=== PATIENT | female | born 1995 | race Hispanic/Latino ===

== ENCOUNTER 2019-07-02 17:36 | Inpatient (IN) | payer BC ==
[2019-07-02] MEDS ORDERED: hydrALAZINE 20 MG/ML VIAL SLOW IVP PRN ×2 (17:48→19:24)
[2019-07-02 18:11] LABS: #Lymphocytes 2.1 thou/uL (1.20-3.40); #Monocytes 0.5 thou/uL (0.11-0.59); #Neutrophils 8.7 thou/uL (1.40-6.50); %Basophils 0.4 % (0.0-1.0); %Eosinophils 0.2 % (0.0-10.0); %Lymphocytes 18.2 % (21.0-51.0); %Monocytes 4.4 % (0.0-10.0); %Neutrophils 76.8 % (42.0-75.0); Hemoglobin 11.7 g/dL (12.0-16.0); Mean Corpuscular HGB CONC 33.4 g/dL (32.0-36.0); Mean Corpuscular Hemoglobin 27.1 pg (27.0-31.0); Mean Platelet Volume 8.7 fL (7.4-10.4); Platelet Count 159 thou/uL (130-400); RBC Distribution Width 13.7 % (11.5-14.5); Red Blood Cell (RBC) Count 4.31 mill/uL (4.20-5.40); White Blood Cell (WBC) Count 11.4 thou/uL (4.8-10.8)
[2019-07-02] MEDS ORDERED: Labetalol HCl 100 MG/20 ML VIAL SLOW IVP PRN (18:32)
[2019-07-02] MEDS ORDERED: Labetalol HCl 100 MG/20 ML VIAL ONE (18:32)
[2019-07-02 18:34] LABS: ALT (SGPT) 28 U/L (8-55); AST (SGOT) 42 U/L (5-34); Albumin 2.6 g/dL (3.5-5.0); Alkaline Phosphatase 199 U/L (40-110); Anion Gap 10 mmol/L (10-20); BUN (Urea Nitrogen) 11 mg/dL (7.0-18.7); Bilirubin, Total 0.3 mg/dL (0.2-1.2); Calc. Creatinine Clearance 143 mL/min (70-130); Calcium 8.2 mg/dL (7.8-10.44); Carbon Dioxide 25 mmol/L (22-29); Chloride 104 mmol/L (98-107); Estimated GFR-MDRD Greater than 90; Globulin 3.5 g/dL (2.4-3.5); Glucose 87 mg/dL (70-105); Potassium 3.9 mmol/L (3.5-5.1); Protein, Total 6.1 g/dL (6.0-8.3); Sodium 135 mmol/L (136-145)
[2019-07-02] MEDS: Betamet Acet/Betamet Na Ph 30 MG/5 ML VIAL IM SCH (19:00)
[2019-07-02] MEDS: Labetalol HCl 100 MG/20 ML VIAL SLOW IVP PRN ×2 (19:00→21:40)
[2019-07-02] MEDS ORDERED: Betamet Acet/Betamet Na Ph 30 MG/5 ML VIAL ONE (19:01)
[2019-07-02] MEDS ORDERED: Magnesium Sulfate 20 gm/500 ml 20 GM/500 ML BAG ONE (19:02)
[2019-07-02 19:09] LABS: Bacteria/HPF 2+ HPF (None Seen); Bilirubin Negative (Negative); Blood, Urine 1+ (Negative); Clarity Turbid (Clear); Glucose, Urine (Dipstick) Normal (Negative); Leukocyte Negative Leu/uL (Negative); Nitrite Negative (Negative); Protein, Urine (Dipstick) 600 mg/dL (Neg-Trace); RBC/HPF 0-3 HPF (0-3); Urobilinogen Normal mg/dL (Less than 2)
[2019-07-02 19:23] LABS: Creatinine, Urine 145.39 mg/dL (47-110)
[2019-07-02] MEDS ORDERED: Calcium Gluc 4.6 MEQ/10 ML (100 MG/ML) SLOW IVP PRN (19:24)
[2019-07-02] MEDS ORDERED: Ondansetron PF 4 MG/2 ML Vial IVP PRN (19:24)
[2019-07-02] MEDS ORDERED: Butorphanol Tartrate 1 MG/ML VIAL SLOW IVP PRN (19:24)
[2019-07-02] MEDS ORDERED: Promethazine HCl 25 MG/ML VIAL IM PRN (19:24)
[2019-07-02] MEDS ORDERED: Magnesium Sulfate 20 GM/WATER 500 ML BAG IVPB SCH (19:30)
--- NOTE | 2019-07-02 19:31 | PDOC.LDHP ---
Labor and Delivery H&P Chief complaint: other (elevated BP in office) HPI: 23 yo LAF G1 seen in Dr. Siegel's office with BPs to 160+ systolic this PM. Denies DUMAS or visual changes. Current gestational age (weeks): 34 Due date: 08/13/19 Dating criteria: last menstrual period Grav: 1 Para: 0 OB History Details: PNC with Dr. Siegel w/o complications. Current complications: none Abnormal US findings: No Current medications: pre- vitamins Previous surgical history: appendectomy, other (PE tubes) Allergies/Adverse Reactions: Allergies Allergy/AdvReac Type Severity Reaction Status Date / Time No Known Allergies Allergy Verified 07/02/19 18:20 Social history: none - Physical Exam Abnormal vital signs: BPs 160-170s General: NAD Heart: RRR Lungs: CTAB Abdomen: gravid Extremeties: trace edema FHT: category 1 [place] contractions every: none seen - Vaginal Exam cm dilated: 1 Effacement: 50% Station: -1 - Assessment 34 week IUP, r/o severe PIH - Plan Plan: admit to L&D, magnesium for neuroprotection, informed consent obtained, magnesium for seizure prophylaxis, other (Steroids for FLM started. Dr. Siegel aware.)
[2019-07-02] MEDS ORDERED: FLU VACC QS2019-20(6MOS UP)/PF 60 MCG/0.5 ML SYRINGE IM ONE (20:00)
[2019-07-02 20:42] LABS: Syphilis Antibody Nonreactive (Nonreactive); Syphilis Antibody Index 0.05 S/CO (<1.00 Non-Reactive)
[2019-07-02 20:46] LABS: Protein, Urine Random Quant Greater than 2000 mg/dL (1-14)
[2019-07-02] MEDS: Lactated Ringer's 1,000 ML IV SCH (21:05)
[2019-07-02] MEDS: Magnesium Sulfate 20 gm/500 ml 20 GM/500 ML BAG IVPB SCH (21:06)
--- NOTE | 2019-07-02 21:22 | PDOC.EVN ---
Event Note - Event Note Event Note: Labs on admit: WBC= 11.4, H/H= 11.7/34.9, plts= 159K Cr= .69 T. bili= .3, AST/ALT= 42/28 Urine Prot/Cr= 13+ Will start 24 urine for total protein and cont. MgSo4.
[2019-07-02 22:25] LABS: HBSAg Index 0.12 S/CO (0-0.99); Hep B Surf Ag Non-Reactive S/CO (NonReactive)
[2019-07-02] MEDS: hydrALAZINE 20 MG/ML VIAL SLOW IVP PRN (23:08)
[2019-07-03] MEDS: Magnesium Sulfate 20 gm/500 ml 20 GM/500 ML BAG IVPB SCH (02:58)
--- NOTE | 2019-07-03 06:54 | PDOC.EVN ---
Event Note - Event Note Event Note: 34 1/ weeks. Sleeping. Received 3 doses of Labetalol and a single dose of Apresoline late last PM. BPs 140's/90's now. FHTs stable, occasional UCs seen. Mg at 2 gm/hr. Plan; 24 hr urine in progress, cont. MgSo4, second dose of steroids due this PM. Would proceed with delivery if requires more antihypertensive meds.
[2019-07-03] MEDS: Lactated Ringer's 1,000 ML IV SCH ×3 (08:19→21:43)
[2019-07-03 08:55] LABS: #Lymphocytes 1.6 thou/uL (1.20-3.40); #Monocytes 0.2 thou/uL (0.11-0.59); #Neutrophils 13.4 thou/uL (1.40-6.50); %Basophils 0.3 % (0.0-1.0); %Eosinophils 0.2 % (0.0-10.0); %Lymphocytes 10.3 % (21.0-51.0); %Monocytes 1.4 % (0.0-10.0); %Neutrophils 87.8 % (42.0-75.0); Hemoglobin 10.5 g/dL (12.0-16.0); Mean Corpuscular HGB CONC 33.1 g/dL (32.0-36.0); Mean Corpuscular Hemoglobin 26.9 pg (27.0-31.0); Mean Corpuscular Volume 81.4 fL (78.0-98.0); Mean Platelet Volume 9.7 fL (7.4-10.4); Platelet Count 158 thou/uL (130-400); RBC Distribution Width 13.8 % (11.5-14.5); Red Blood Cell (RBC) Count 3.89 mill/uL (4.20-5.40); White Blood Cell (WBC) Count 15.3 thou/uL (4.8-10.8)
[2019-07-03 09:17] LABS: ALT (SGPT) 26 U/L (8-55); AST (SGOT) 32 U/L (5-34); Albumin 2.2 g/dL (3.5-5.0); Alkaline Phosphatase 172 U/L (40-110); Anion Gap 19 mmol/L (10-20); BUN (Urea Nitrogen) 10 mg/dL (7.0-18.7); Bilirubin, Total 0.3 mg/dL (0.2-1.2); Calc. Creatinine Clearance 147 mL/min (70-130); Carbon Dioxide 13 mmol/L (22-29); Chloride 104 mmol/L (98-107); Estimated GFR-MDRD Greater than 90; Globulin 3.2 g/dL (2.4-3.5); Glucose 115 mg/dL (70-105); Magnesium 7.1 mg/dL (1.6-2.6); Potassium 4.1 mmol/L (3.5-5.1); Protein, Total 5.4 g/dL (6.0-8.3); Sodium 132 mmol/L (136-145)
[2019-07-03] MEDS: Betamet Acet/Betamet Na Ph 30 MG/5 ML VIAL IM SCH (19:24)
[2019-07-03 19:59] LABS: Urine Total Volume 1300 mL (600-1600)
[2019-07-03 20:38] LABS: Protein - 24 Hr 10764 mg/24 hr (Less than 300); Protein, Urine 828 mg/dL (1-14)
[2019-07-03] MEDS: Acetaminophen 500 MG TAB PO PRN (22:52)
[2019-07-04] MEDS: Lactated Ringer's 1,000 ML IV SCH (06:12)
--- NOTE | 2019-07-04 07:52 | PDOC.EVN ---
Event Note - Event Note Event Note: S: Doing well, no complaints this morning. O: BPs normal to mild range yesterday and overnight. Gen - AAO, NAD Abd- soft, gravid, NTTP NST: 130s, mod variability, + accels, no decels A/P: 23 y/o G1 at 34 2/7 weeks with preeclampsia with severe features. Received 3 doses of Labetalol and a single dose of Apresoline late PM of 07/02. MgSO4 turned off for now but will be restarted if severe pressures spike again. S/p celestone x 2. Continue to monitor.
[2019-07-04] MEDS: Acetaminophen 500 MG TAB PO PRN (15:17)
[2019-07-05] MEDS: hydrALAZINE 20 MG/ML VIAL SLOW IVP PRN ×2 (01:20→04:55)
[2019-07-05 07:15] LABS: Hemoglobin 10.5 g/dL (12.0-16.0); Mean Corpuscular HGB CONC 33.5 g/dL (32.0-36.0); Mean Corpuscular Volume 80.7 fL (78.0-98.0); Red Blood Cell (RBC) Count 3.87 mill/uL (4.20-5.40)
[2019-07-05 07:32] LABS: ALT (SGPT) 20 U/L (8-55); AST (SGOT) 32 U/L (5-34); Albumin 2.2 g/dL (3.5-5.0); Alkaline Phosphatase 164 U/L (40-110); Anion Gap 11 mmol/L (10-20); BUN (Urea Nitrogen) 23 mg/dL (7.0-18.7); Bilirubin, Total 0.2 mg/dL (0.2-1.2); Calc. Creatinine Clearance 141 mL/min (70-130); Calcium 7.1 mg/dL (7.8-10.44); Carbon Dioxide 21 mmol/L (22-29); Chloride 105 mmol/L (98-107); Estimated GFR-MDRD Greater than 90; Glucose 106 mg/dL (70-105); Protein, Total 5.2 g/dL (6.0-8.3); Sodium 133 mmol/L (136-145)
--- NOTE | 2019-07-05 08:45 | ULT ---
PRELIMINARY REPORT/[facility]/EMERGENCY AFTER HOURS PROCEDURE: PROCEDURE INFORMATION: Exam: US Biophysical Profile Without Non-Stress Test Exam date and time: 07/05/2019 12:34 AM Clinical history: 23 years old, female; Other: Severe pre-eclampsia; TECHNIQUE: Imaging protocol: US biophysical profile without non-stress testing. COMPARISON: No relevant prior studies available. FINDINGS: Other findings: Biophysical profile score is 8/8. position is vertex. Breathin/2 Gross body movements: 2/2 tone: 2/2 Qualitative amniotic fluid: 2/2 Biophysical Profile Score: 8/8 Gestation: Single live intrauterine gestation. Heart rate: heart rate 135 beats per minute. Amniotic fluid: Amniotic fluid volume is normal with an COLEMAN of 7.6 cm. Placenta: Placenta is located maternal left with incidental venous lakes. Umbilical artery Doppler: Umbilical artery SD ratio measured at 3.2. IMPRESSION: 1. Single live intrauterine gestation as above. 2. Umbilical artery SD ratio measured at 3.2. 3. Biophysical profile score is 8/8. Thank you for allowing us to participate in the care of your patient. Dictated and Authenticated by: Titi Sarah MD 07/05/2019 2:04 AM Central Time ([place] & [place]) FINAL REPORT EMERGENCY AFTER HOURS STUDY ULTRASOUND BIOPHYSICAL PROFILE: DATE: 07/05/2019. TIME: 12:56 AM. HISTORY: 23-year-old female in second trimester of with severe preeclampsia. FINDINGS: breathin tone: 2 movement: 2 Amniotic fluid volume: 2 Other findings as described in preliminary report by [facility]. Agreement with that prelimin jazzy report. IMPRESSION: Normal biophysical profile score of 8 out of 8, excluding the nonstress test. Transcribed Date/Time: 07/05/2019 8:50 AM
[2019-07-05] MEDS ORDERED: Furosemide 20 MG/2 ML VIAL SLOW IVP SCH (09:00)
--- NOTE | 2019-07-05 09:02 | PDOC.EVN ---
Event Note - Event Note Event Note: 34 weeks 3 days Dayana BANUELOS LDR6 At bedside now HX reviewed BPs 140/90s LFTS normal this AM CBC pending Due to patient discomfort with swellling, I have ordered 10mg Lasix IV and we will keep on monitors for now. No IVFs due to edema lower extremities Plan: continue expectant care for now. Steroids done
[2019-07-05 09:44] LABS: Band 2 % (5-11); Lymphocytes 14 % (21-51); MDiff Complete? YES; Mean Platelet Volume 9.1 fL (7.4-10.4); Monocytes 6 % (0-10); Neutrophil 78 % (42-75); Nucleated RBC 2 % (0); Platelet Count 212 thou/uL (130-400); Platelet Morphology Comment Appears Adequate; Polychromasia SLIGHT = 2-3 cells (100X) (0-2/hpf); White Blood Cell (WBC) Count 17.7 thou/uL (4.8-10.8)
--- NOTE | 2019-07-05 15:09 | PDOC.EVN ---
Event Note - Event Note Event Note: At bedside States legs feel better after lasix Bp 144/89 We will take off monitors fr now and allow ambulation if desired NST BID
[2019-07-05] MEDS: Acetaminophen 500 MG TAB PO PRN (15:39)
--- NOTE | 2019-07-06 09:00 | PDOC.EVN ---
Event Note - Event Note Event Note: 34 4/7 weeks. No complaints. Denies DUMAS or visual changes. BP x 1 to 160 overnight, all BPs since then are nonsevere. Off Mg and has completed steroids. Testing remains reassuring. Discussed plan with Dr. Siegel this AM; will deliver for sustained elevated BPs , otherwise remain in hospital until delivery.
[2019-07-06] MEDS: Acetaminophen 500 MG TAB PO PRN (19:04)
[2019-07-06] MEDS ORDERED: hydrALAZINE 20 MG/ML VIAL ONE (19:25)
[2019-07-06] MEDS: hydrALAZINE 20 MG/ML VIAL SLOW IVP PRN (19:38)
--- NOTE | 2019-07-06 20:50 | RAD ---
AP CHEST: HISTORY: Shortness of breath. FINDINGS: Hazy opacity in the left lung base is concerning for possible infiltrate. Breast shadows obscure deta il. The upper lung grove are clear. The heart and mediastinum are unremarkable. IMPRESSION: Question hazy infiltrate in the left lung base although this may be projectional and left breast atte nuation obscures detail. Recommend upright PA and lateral views of the chest for better evaluation. POS: [facility]
[2019-07-06] MEDS ORDERED: Docusate Sodium 10 MG/1 ML Oral Suspension PO SCH (21:00)
[2019-07-06] MEDS ORDERED: NS / Oxytocin 40 units/1000ml 1,000 ML IV PRN (21:12)
[2019-07-06] MEDS ORDERED: Lidocaine 1% (PF) 30 ML VIAL SC PRN (21:12)
--- NOTE | 2019-07-06 21:12 | PDOC.EVN ---
Event Note - Event Note Event Note: Apresoline 5 mg given for BP 160s systolic, good response noted. Reports mild SOB. RR= 20-24. Chest CTA. Portable CXR shows ? basilar infiltrate, no generalized edema seen. D/w Dr. Siegel. In view of elevated pressures, and increasing edema will proceed with delivery. SVE= closed, mid, soft. Cytotec ordered.
[2019-07-06] MEDS ORDERED: NS w/ Oxytocin 10 units 500 ML IV SCH (21:15)
[2019-07-06 21:27] LABS: #Basophils 0.1 thou/uL (0.0-0.2); #Eosinphils 0.2 thou/uL (0.0-0.7); #Lymphocytes 3.5 thou/uL (1.20-3.40); #Monocytes 1.2 thou/uL (0.11-0.59); #Neutrophils 11.9 thou/uL (1.40-6.50); %Basophils 0.6 % (0.0-1.0); %Eosinophils 1.1 % (0.0-10.0); %Lymphocytes 20.8 % (21.0-51.0); %Monocytes 7.2 % (0.0-10.0); %Neutrophils 70.4 % (42.0-75.0); Hemoglobin 11.7 g/dL (12.0-16.0); Mean Corpuscular HGB CONC 33.6 g/dL (32.0-36.0); Mean Corpuscular Hemoglobin 26.8 pg (27.0-31.0); Mean Corpuscular Volume 79.9 fL (78.0-98.0); Mean Platelet Volume 9.8 fL (7.4-10.4); Platelet Count 205 thou/uL (130-400); RBC Distribution Width 14.3 % (11.5-14.5); Red Blood Cell (RBC) Count 4.36 mill/uL (4.20-5.40); White Blood Cell (WBC) Count 16.9 thou/uL (4.8-10.8)
[2019-07-06 21:47] LABS: ALT (SGPT) 25 U/L (8-55); AST (SGOT) 37 U/L (5-34); Albumin 2.3 g/dL (3.5-5.0); Alkaline Phosphatase 177 U/L (40-110); Anion Gap 10 mmol/L (10-20); BUN (Urea Nitrogen) 24 mg/dL (7.0-18.7); Bilirubin, Total 0.3 mg/dL (0.2-1.2); Calc. Creatinine Clearance 133 mL/min (70-130); Calcium 7.4 mg/dL (7.8-10.44); Carbon Dioxide 22 mmol/L (22-29); Chloride 105 mmol/L (98-107); Estimated GFR-MDRD Greater than 90; Globulin 3.2 g/dL (2.4-3.5); Glucose 99 mg/dL (70-105); Potassium 4.4 mmol/L (3.5-5.1); Protein, Total 5.5 g/dL (6.0-8.3); Sodium 133 mmol/L (136-145)
[2019-07-06] MEDS ORDERED: Penicillin G Potassium 5 MILL.UNITS in Sodium Chloride 0.9% 100 ML IVPB SCH (22:00)
[2019-07-06] MEDS: Docusate 100 MG CAP PO SCH (22:23)
[2019-07-06] MEDS: Misoprostol 100 MCG TAB VAG SCH (22:24)
[2019-07-07] MEDS: Misoprostol 100 MCG TAB VAG SCH ×2 (02:02→06:12)
[2019-07-07] MEDS: Penicillin G 2.5 MILL.units 2.5 MILL.UNITS in Premix Bag 1 BAG IVPB SCH ×4 (02:05→13:48)
[2019-07-07] MEDS: hydrALAZINE 20 MG/ML VIAL SLOW IVP PRN ×2 (02:21→02:52)
[2019-07-07] MEDS ORDERED: Magnesium Sulfate 20 gm/500 ml 20 GM/500 ML BAG ONE (03:00)
--- NOTE | 2019-07-07 03:30 | PDOC.EVN ---
Event Note - Event Note Event Note: Cytotec x 2 doses given. BPs to 170s x2, Apresoline 5 mg x 2 given. Fhts stable. Ucs irregular. Will start MgSo4.
[2019-07-07] MEDS ORDERED: Calcium Gluc 4.6 MEQ/10 ML (100 MG/ML) SLOW IVP PRN (04:59)
[2019-07-07] MEDS ORDERED: Magnesium Sulfate 20 GM/WATER 500 ML BAG IVPB SCH (05:00)
[2019-07-07] MEDS ORDERED: Magnesium Sulfate 20 gm/500 ml 20 GM/500 ML BAG IVPB SCH ×2 (05:00→17:30)
--- NOTE | 2019-07-07 09:18 | PRG ---
DATE OF SERVICE: 07/07/2019 TIME OF SERVICE: 0815 hours. The patient underwent initiation of induction of labor with restarting magnesium sulfate last night by Dr. Tae Gaines secondary to severe range blood pressures. She received 3 Cytotec's, last one at 0600 hours. This morning, she is noted to have a category I heart rate tracing. Difficult to assess contractions secondary to abdominal edema. Lungs are clear, but the patient becomes moderately short of breath with activity. Blood pressures are to 180s/98 and is requiring an Apresoline on a p.r.n. basis for this. Exam revealed the cervix to be 2, 80, -2, cephalic, bag of water intact. AROM was performed with copious clear fluid noted. An IUPC was placed. We will continue with magnesium sulfate and induction of labor. We will initiate Pitocin as needed and anticipate spontaneous vaginal delivery with delivery for maternal or medications. We will recheck basic metabolic panel, CBC, magnesium, and AST at noon today. Job ID: [id number]
[2019-07-07] MEDS ORDERED: Fentanyl 4 mcg/Bup 0.1% Cadd 100 ML ONE (10:51)
[2019-07-07] MEDS ORDERED: Lidocaine 1.5%/Epinephrine 1:200,000 5 ML AMPUL IJ ONE (10:52)
[2019-07-07] MEDS: Lactated Ringer's 1,000 ML IV SCH (11:00)
[2019-07-07 11:59] LABS: INR-International Normal Ratio 0.8; PTT 27.2 SEC (22.9-36.1); Prothrombin Time 11.3 SEC (12.0-14.7)
[2019-07-07 12:14] LABS: Band 2 % (5-11); Hemoglobin 12.2 g/dL (12.0-16.0); Lymphocytes 16 % (21-51); MDiff Complete? YES; Mean Corpuscular HGB CONC 32.7 g/dL (32.0-36.0); Mean Corpuscular Hemoglobin 26.8 pg (27.0-31.0); Mean Corpuscular Volume 81.8 fL (78.0-98.0); Mean Platelet Volume 10.2 fL (7.4-10.4); Monocytes 6 % (0-10); Neutrophil 76 % (42-75); Platelet Count 234 thou/uL (130-400); RBC Distribution Width 14.8 % (11.5-14.5); RBC Morphology Normal; Red Blood Cell (RBC) Count 4.57 mill/uL (4.20-5.40); White Blood Cell (WBC) Count 23.4 thou/uL (4.8-10.8)
[2019-07-07 12:28] LABS: AST (SGOT) 32 U/L (5-34); Anion Gap 16 mmol/L (10-20); BUN (Urea Nitrogen) 22 mg/dL (7.0-18.7); Calc. Creatinine Clearance 133 mL/min (70-130); Calcium 7.1 mg/dL (7.8-10.44); Carbon Dioxide 18 mmol/L (22-29); Chloride 102 mmol/L (98-107); Estimated GFR-MDRD Greater than 90; Glucose 103 mg/dL (70-105); Magnesium 7.5 mg/dL (1.6-2.6); Potassium 4.6 mmol/L (3.5-5.1); Sodium 131 mmol/L (136-145)
[2019-07-07] MEDS: Dextrose 5%-Lactated Ringers 1,000 ML IV SCH (12:47)
[2019-07-07] MEDS ORDERED: Misoprostol 200 MCG TAB ONE (16:19)
--- NOTE | 2019-07-07 16:19 | PDOC.APC ---
Antepartum Consult SHANTA VELAZCO is a 23 year old female at [34 5/7] gestational weeks. I was asked by Dr Siegel to speak with the patient regarding anticipated course for a baby born at 34 weeks. I spoke with the patient and father of the baby. The resuscitation team will be present at the delivery. The initial focus will be on respiratory stabilization and may include minimal assistance, CPAP or intubation with surfactant administration. I discussed that the patient will need to be admitted to the NICU in an isolette due to temperature instability associated with prematurity. We will then obtain IV access ( peripheral will be first line, umbilical if unable to obtain peripheral) as babies are at risk for hypoglycemia. We discussed that babies born are at higher risk for feeding intolerance, infection and jaundice. I discussed that breastmilk is the best nutrition for babies and she is strongly encouraged to pump after delivery. Mother does plan to breastfeed. I explained that the duration of hospital stay will be determined on the clinical course of the baby. I outlined the milestones that needed to be achieved to ensure safe discharge home. They had the opportunity to ask questions. I encouraged them to contact our service again if additional questions arise. I spent 20 minutes with the patient including face to face education and coordination of care. Labs: Ante Labs Blood Type AB POSITIVE 07/06/19 06:18 Hep Bs Antigen Non-Reactive S/CO (NonReactive) 07/02/19 19:52
[2019-07-07] MEDS ORDERED: Milk Of Magnesia 30 ML UDCUP PO PRN (17:23)
[2019-07-07] MEDS ORDERED: Calcium Gluconate 4.6 MEQ in Sodium Chloride 0.9% 100 ML IVPB PRN (17:23)
[2019-07-07] MEDS ORDERED: Bisacodyl 10 MG SUPP PR PRN (17:23)
[2019-07-07] MEDS ORDERED: Benzocaine-Menthol 82.5 ML CAN TOP PRN (17:23)
[2019-07-07] MEDS ORDERED: HYDROcodone/Acetaminophen 5/325 mg Tablet PO PRN ×2 (17:23)
[2019-07-07] MEDS ORDERED: Ondansetron PF 4 MG/2 ML Vial IVP PRN (17:23)
[2019-07-07] MEDS ORDERED: hydrALAZINE 20 MG/ML VIAL SLOW IVP PRN (17:23)
[2019-07-07] MEDS ORDERED: NS / Oxytocin 40 units/1000ml 1,000 ML IV SCH (17:30)
[2019-07-07 17:57] LABS: Actual Bicarbonate (HCO3a) 19.2 mEq/L (22-28)
--- NOTE | 2019-07-07 18:20 | OP ---
DATE OF PROCEDURE: 07/07/2019 PREOPERATIVE DIAGNOSIS: Severe preeclampsia at 34 weeks and 5 days with severe variable decelerations and complete complete +3 to +4. POSTOPERATIVE DIAGNOSIS: Severe preeclampsia at 34 weeks and 5 days with severe variable decelerations and complete complete +3 to +4. PROCEDURE: Outlet vacuum extraction with second-degree laceration. ANESTHESIA: Epidural. ESTIMATED BLOOD LOSS: Pending. SPECIMEN REMOVED: Placenta, three-vessel cord for pathology. FINDINGS: 1. Vigorous female , 8 and 9 Apgars, 1741, to NICU for prematurity. 2. Cord gas pending. 3. Placenta intact, sent for pathology. 4. Second-degree midline laceration repaired in usual manner with 2-0 chromic. 5. VE for approximately 60 seconds in the green zone with one pop-off. DESCRIPTION OF PROCEDURE: After obtaining appropriate informed consent, the patient had been pushing and was noted to have moderate to severe variable decelerations +3 station. Decision was made to proceed with a vacuum extraction. Bladder was drained well with a Hernandez catheter. IUPC and scalp electrode were removed. The vacuum was placed. The was noted to be straight OP position. Vacuum was applied and gentle traction was applied over 2 contractions. At the end of the first contraction, the head was at +4 station and we had a one pop-off. Vacuum was reapplied and with a second contraction, the was delivered over the second-degree midline laceration. It was placed on the maternal abdomen and covered to maintain one for approximately 60 seconds with delayed cord clamping. NICU team was in attendance. Cord blood sample obtained and cord gas obtained. Placenta delivered spontaneously. Second-degree midline laceration noted and repaired using a 2-0 chromic. The patient entered into LICU recovery for severe preeclampsia. Job ID: [id number]
[2019-07-07] MEDS: Ibuprofen 800 MG TAB PO SCH (22:20)
[2019-07-07] MEDS: Docusate Calcium (SURFAK) 240 MG CAP PO SCH (22:20)
[2019-07-08] MEDS: hydrALAZINE 20 MG/ML VIAL SLOW IVP PRN (02:21)
[2019-07-08] MEDS ORDERED: Ferrous Sulfate 325 MG TAB PO SCH (08:00)
[2019-07-08 08:03] LABS: Hemoglobin 9.8 g/dL (12.0-16.0); Mean Corpuscular HGB CONC 32.8 g/dL (32.0-36.0); Mean Corpuscular Hemoglobin 26.9 pg (27.0-31.0); Mean Corpuscular Volume 81.9 fL (78.0-98.0); Platelet Count 199 thou/uL (130-400); RBC Distribution Width 15.1 % (11.5-14.5); Red Blood Cell (RBC) Count 3.64 mill/uL (4.20-5.40); White Blood Cell (WBC) Count 20.6 thou/uL (4.8-10.8)
[2019-07-08] MEDS ORDERED: Adacel (T-DAP) 0.5 ML SYRINGE IM ONE (09:00)
[2019-07-08] MEDS: Prenatal Vitamin 1 TAB PO SCH (09:33)
[2019-07-08] MEDS: Docusate Calcium (SURFAK) 240 MG CAP PO SCH ×2 (09:33→21:55)
--- NOTE | 2019-07-08 14:20 | PRG ---
DATE OF SERVICE: 07/08/2019 TIME OF SERVICE: 1400. SUBJECTIVE: The patient is resting comfortably. Urine output has been 75 to 100 mL/hour. OBJECTIVE: VITAL SIGNS: For the past 6 hours, blood pressures have been below 160s/100, and it is as low as 130s/80s. She denies headache. DTRs are 1+ . ABDOMEN: Soft, nontender, firm fundus. Normal lochia. Perineum intact. EXTREMITIES: Without clubbing or cyanosis and with improving edema. LABORATORY: Hematocrit this morning is 29.8 with 199 platelets. Magnesium was 5.9. IMPRESSION: Severe preeclampsia at 34 weeks, now approximately 20 hours post delivery, doing well with diuresis and normalization of blood pressure. PLAN: Discontinue magnesium at 1700. Anticipate discharge from LICU care to the floor with a routine preeclamptic post delivery followup. Job ID: [id number]
[2019-07-08] MEDS ORDERED: hydrALAZINE 20 MG/ML VIAL SLOW IVP PRN (14:55)
[2019-07-08] MEDS ORDERED: Bisacodyl 10 MG SUPP PR PRN (14:55)
[2019-07-08] MEDS ORDERED: Zolpidem Tartrate 5 MG TAB PO PRN (14:55)
[2019-07-08] MEDS ORDERED: HYDROcodone/Acetaminophen 5/325 mg Tablet PO PRN ×2 (14:55)
[2019-07-08] MEDS ORDERED: Benzocaine-Menthol 82.5 ML CAN TOP PRN (14:55)
[2019-07-08] MEDS ORDERED: Milk Of Magnesia 30 ML UDCUP PO PRN (14:55)
[2019-07-08] MEDS ORDERED: Lanolin Ointment 7 GM TUBE TOP PRN (14:55)
[2019-07-08] MEDS ORDERED: NS / Oxytocin 40 units/1000ml 1,000 ML IV SCH (14:55)
[2019-07-08] MEDS ORDERED: Ondansetron PF 4 MG/2 ML Vial IVP PRN (14:55)
[2019-07-08] MEDS: Ferrous Sulfate 325 MG TAB PO SCH (21:55)
[2019-07-08] MEDS: Ibuprofen 800 MG TAB PO SCH ×2 (21:55→22:56)
[2019-07-08] MEDS: Misoprostol 100 MCG TAB VAG SCH ×2 (22:50→22:51)
[2019-07-08] MEDS: Docusate 100 MG CAP PO SCH (22:51)
[2019-07-08] MEDS: Dextrose 5%-Lactated Ringers 1,000 ML IV SCH (22:52)
[2019-07-08] MEDS: Lactated Ringer's 1,000 ML IV SCH (22:56)
[2019-07-08] MEDS: Penicillin G 2.5 MILL.units 2.5 MILL.UNITS in Premix Bag 1 BAG IVPB SCH ×3 (23:13→23:18)
[2019-07-09] MEDS: Ibuprofen 800 MG TAB PO SCH ×3 (06:14→22:10)
[2019-07-09] MEDS: Ferrous Sulfate 325 MG TAB PO SCH ×2 (08:57→20:09)
[2019-07-09] MEDS: Prenatal Vitamin 1 TAB PO SCH (08:57)
[2019-07-09] MEDS: Docusate Calcium (SURFAK) 240 MG CAP PO SCH ×2 (08:58→20:10)
[2019-07-09] MEDS ORDERED: NIFEdipine XL 30 MG TAB PO SCH (12:00)
--- NOTE | 2019-07-09 15:54 | PRG ---
DATE OF SERVICE: 07/09/2019 SUBJECTIVE: The patient is doing well now in a day #2. She has had some elevated systolic blood pressures and decision was made to go ahead and start her on low-dose Procardia XL. The patient's previous edema noted in the middle of her back has resolved. However, she continues to have significant edema in her lower abdomen. Fundus is firm and nontender. OBJECTIVE: LUNGS: Clear to auscultation bilaterally. HEART: Regular rate and rhythm. VITAL SIGNS: Blood pressure 140/90, pulse 96, respirations 18, temperature 98.2. IMPRESSION: Severe preeclampsia, now day #2 to 3. PLAN: Continue care. Initiate antihypertensives. Anticipate discharge on Saturday. Job ID: [id number]
[2019-07-10] MEDS: Ibuprofen 800 MG TAB PO SCH ×3 (05:34→22:27)
[2019-07-10] MEDS ORDERED: Mag-Al 1200 mg/1200 mg/30 ML UDCUP PO PRN (06:07)
--- NOTE | 2019-07-10 07:37 | PRG ---
DATE OF SERVICE: 07/10/2019 TIME OF SERVICE: 0715 hours. SUBJECTIVE: The patient is resting comfortably. She states that she is feeling better and her belly feels less distended. OBJECTIVE: VITAL SIGNS: Temperature 98.3, pulse 110, respirations 18, blood pressure 137/76. HEENT: Within normal limits. SKIN: Area of edema in middle back is resolved. ABDOMEN: Soft. There is definitely a decrease in the edema and tension noted in it over yesterday. PELVIC: Fundus is firm. Normal lochia. EXTREMITIES: Lower extremities continue at have 1 to 2+ edema. Of note, the patient was started on Procardia XL 30 yesterday. IMPRESSION: Severe preeclampsia, now with resolving hypertension and edema. PLAN: Continue current care. Possible discharge in 1-2 days. Consider possible need for diuretics. We will initiate Zantac at patient's request. Job ID: [id number]
[2019-07-10] MEDS: Ferrous Sulfate 325 MG TAB PO SCH ×2 (10:18→17:10)
[2019-07-10] MEDS: Famotidine 20 MG TAB PO SCH ×2 (10:18→21:03)
[2019-07-10] MEDS: Prenatal Vitamin 1 TAB PO SCH (10:19)
[2019-07-10] MEDS: Docusate Calcium (SURFAK) 240 MG CAP PO SCH ×2 (10:19→21:04)
[2019-07-10] MEDS: NIFEdipine XL 30 MG TAB PO SCH (10:19)
[2019-07-10 10:45] LABS: Hemoglobin 7.8 g/dL (12.0-16.0); Mean Corpuscular HGB CONC 31.9 g/dL (32.0-36.0); Mean Corpuscular Hemoglobin 26.9 pg (27.0-31.0); Mean Corpuscular Volume 84.5 fL (78.0-98.0); Mean Platelet Volume 7.8 fL (7.4-10.4); Platelet Count 248 thou/uL (130-400); RBC Distribution Width 15.3 % (11.5-14.5); Red Blood Cell (RBC) Count 2.88 mill/uL (4.20-5.40); White Blood Cell (WBC) Count 15.7 thou/uL (4.8-10.8)
[2019-07-10 11:00] LABS: #Eosinphils 0.1 thou/uL (0.0-0.7); #Lymphocytes 2.9 thou/uL (1.20-3.40); #Monocytes 0.9 thou/uL (0.11-0.59); #Neutrophils 11.8 thou/uL (1.40-6.50); %Basophils 0.3 % (0.0-1.0); %Eosinophils 0.6 % (0.0-10.0); %Lymphocytes 18.5 % (21.0-51.0); %Monocytes 5.4 % (0.0-10.0); %Neutrophils 75.3 % (42.0-75.0); Anisocytosis SLIGHT = 6-15 cells (100X) (0-5/hpf); MDiff Complete? YES; Platelet Morphology Comment Appears Adequate; Polychromasia SLIGHT = 2-3 cells (100X) (0-2/hpf)
[2019-07-11] MEDS: Ibuprofen 800 MG TAB PO SCH ×4 (05:19→22:10)
[2019-07-11 05:55] LABS: #Basophils 0.1 thou/uL (0.0-0.2); #Eosinphils 0.2 thou/uL (0.0-0.7); #Lymphocytes 2.5 thou/uL (1.20-3.40); #Monocytes 0.8 thou/uL (0.11-0.59); #Neutrophils 10.9 thou/uL (1.40-6.50); %Basophils 0.4 % (0.0-1.0); %Eosinophils 1.2 % (0.0-10.0); %Lymphocytes 17.4 % (21.0-51.0); %Monocytes 5.5 % (0.0-10.0); %Neutrophils 75.5 % (42.0-75.0); Hemoglobin 7.4 g/dL (12.0-16.0); Mean Corpuscular Hemoglobin 26.9 pg (27.0-31.0); Mean Corpuscular Volume 84.2 fL (78.0-98.0); Mean Platelet Volume 7.3 fL (7.4-10.4); Platelet Count 219 thou/uL (130-400); RBC Distribution Width 15.4 % (11.5-14.5); Red Blood Cell (RBC) Count 2.75 mill/uL (4.20-5.40); White Blood Cell (WBC) Count 14.5 thou/uL (4.8-10.8)
--- NOTE | 2019-07-11 07:01 | PDOC.PP ---
Post Progress Note Post Day #: 4 Subjective: No significant overnight events. Patient endorses shortness of breath, particularly with exertion. She states she can barely get to the NICU without getting significantly short of breath. She denies any chest pain, but she does endorse occasional palpitations. She had an episode of palpitations yesterday that she had to call the nurse in for, because her chest "felt weird". She states that her abdomen is getting softer, but still feels full. She denies headache, vision changes, N/V. Vital Signs (12 hours) Temp Pulse Resp BP Pulse Ox 07/11/19 05:15 98.7 F 115 H 18 125/74 98 07/11/19 01:17 115 H 07/11/19 01:00 98.6 F 117 H 18 136/82 07/10/19 21:00 98 07/10/19 20:20 110 H 07/10/19 20:00 98.6 F 112 H 16 133/83 98 Weight Weight 72.575 kg - Physical Examination General: NAD Deviation from normal: Tachycardic Respiratory: clear to auscultation bilaterally, non-labored breathing Abdominal: + bowel sounds, lochia (minimal), no distention, appropriately TTP Deviation from normal: Fluid wave Fundus firm & at: Below umbilicus Skin: no rash Neurological: no gross focal deficits Psychiatric: A&Ox3, normal affect Result Diagrams: 07/12/19 12:23 07/11/19 08:35 Additional Labs: Post Labs Blood Type AB POSITIVE 07/06/19 06:18 Hep Bs Antigen Non-Reactive S/CO (NonReactive) 07/02/19 19:52 (1) (spontaneous vaginal delivery) Code(s): O80 - ENCOUNTER FOR FULL-TERM UNCOMPLICATED DELIVERY Status: Acute (2) , delivered Code(s): O80 - ENCOUNTER FOR FULL-TERM UNCOMPLICATED DELIVERY Status: Acute (3) Severe pre-eclampsia, Code(s): O14.15 - SEVERE PRE-ECLAMPSIA, COMPLICATING THE PUERPERIUM Status: Acute - Assessment/Plan Routine PP care - Meeting PP milestones - Encourage ambulation - AB positive Pre-E severe features - IOL at 34 wks - s/p - BP's appear well controlled on Procardia - BP high to 147/90 Persistent tachycardia - CBC this AM, appears to have gradual decline in Hg - Last Hg 7.8 - EKG pending - TSH pending Bilateral lower extremity edema associated with exertional shortness of breath - BNP pending - 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 Possible d/c in next 24-48 hours pending studies. Addendum - Attending - Attending Attestation Date/Time: 07/12/19 5532 I personally evaluated the patient and discussed the management with Dr. Maradiaga. I agree with the History, Examination, Assessment and Plan documented above.
[2019-07-11] MEDS ORDERED: Furosemide 20 MG TAB PO SCH (07:15)
[2019-07-11] MEDS: Prenatal Vitamin 1 TAB PO SCH (08:55)
[2019-07-11] MEDS: Famotidine 20 MG TAB PO SCH ×2 (08:55→22:11)
[2019-07-11] MEDS: Docusate Calcium (SURFAK) 240 MG CAP PO SCH ×2 (08:55→22:11)
[2019-07-11] MEDS: NIFEdipine XL 30 MG TAB PO SCH (08:56)
[2019-07-11] MEDS: Ferrous Sulfate 325 MG TAB PO SCH ×2 (08:56→18:43)
--- NOTE | 2019-07-11 09:08 | PRG ---
DATE OF SERVICE: 07/11/2019 I am here with Dr. Gerardo Fuchs. We are on at bedside with Ms. Pollack. This is a day #4 after vacuum delivery. In brief, we are here at bedside with Ms. Pollack, and we were discussing the test that we have ordered. We have ordered an echocardiogram and a chest x-ray along with an LDH and TSH. These tests are pending. These tests were actually ordered by the previous team just before 8 o'clock before they changed shift. The reason we are ordering these tests is because even though she is clinically stable and looks well. She still has a significant amount of lower extremity bilateral edema. Her respirations are nonlabored. Clinically, she is in no acute distress and is alert. Her hemoglobin also is slightly lower than previous, and her hemoglobin is 7.3, given a hematocrit value of 23. The anemia is not severe enough to explain shortness of breath, so I suspect that this is related to third-space edema that she is having. We will await the chest x-ray and the echo for further management. If these are both negative, then we may just treat her conservatively with Lasix (the Lasix was ordered this morning by the previous team). Our EKG is being done as we speak at bedside. Again, we are simply ruling out the causes of the lower extremity bilateral edema, and I do not suspect a deep venous thrombosis. Dr. Gmaino at bedside with Ms. Pollack. Job ID: [id number]
[2019-07-11 09:21] LABS: Lactic Acid 2.7 mmol/L (0.5-2.2)
[2019-07-11 09:22] LABS: ALT (SGPT) 37 U/L (8-55); AST (SGOT) 61 U/L (5-34); Albumin 2.5 g/dL (3.5-5.0); Alkaline Phosphatase 121 U/L (40-110); Anion Gap 14 mmol/L (10-20); BUN (Urea Nitrogen) 8 mg/dL (7.0-18.7); Bilirubin, Total 0.2 mg/dL (0.2-1.2); Calc. Creatinine Clearance 164 mL/min (70-130); Calcium 8.4 mg/dL (7.8-10.44); Carbon Dioxide 22 mmol/L (22-29); Chloride 106 mmol/L (98-107); Estimated GFR-MDRD Greater than 90; Globulin 3.2 g/dL (2.4-3.5); Glucose 87 mg/dL (70-105); Protein, Total 5.7 g/dL (6.0-8.3); Sodium 138 mmol/L (136-145)
--- NOTE | 2019-07-11 09:55 | RAD ---
PORTABLE CHEST 1 VIEW: Date: 07/11/19 Time: 0905 hours HISTORY: Shortness of breath, tachycardia. FINDINGS: Comparison made with exam of 07/06/19. The heart size is normal. Infiltrate at the left lung base with accompanying effusion is again seen. The right lung is clear. No pneumothoraces are identified. IMPRESSION: Stable exam. POS: [facility]
--- NOTE | 2019-07-11 11:26 | PRG ---
DATE OF SERVICE: 07/11/2019 The patient is in room 344. Please label this evaluation a followup. In brief, the patient's laboratory data has returned with an AST at 61 and a serum lactate level of 2.7. The patient does have a total albumin of 2.5, which is low, but a normal TSH of 3.9. Interestingly, she did have a chest x-ray completed that showed a possible left lower base small effusion and a small local infiltrate. I did review the films myself along with Dr. Fuchs, and while there is some left lower lung base opacity, the upper lung grove are normal. There is also no grossly abnormal cardiomegaly. The findings of the small pleural effusion in maybe an incidental finding as she has no true shortness of breath and no cough. O2 saturations are also normal. She did receive Lasix this morning, and we are still following that diuresis so the effusion maybe treated as well with the Lasix. I do not believe she needs antibiotics at this time, as I do not feel that this is a pulmonary infectious process. Echo is still pending. EKG was done this morning and it is also normal. Job ID: [id number]
--- NOTE | 2019-07-11 11:35 | PDOC.EVN ---
Event Note - Event Note Event Note: UOP after 20mg po lasix was inly 200ml in 1.5 hrs...will give additional 20mg IVP X 1 now to help mobilize the +2 LE edema
[2019-07-11] MEDS ORDERED: Furosemide 20 MG/2 ML VIAL SLOW IVP SCH (11:40)
[2019-07-11] MEDS ORDERED: Sodium Chloride 0.9% 10 ML ONE ×3 (11:54→18:28)
--- NOTE | 2019-07-11 15:08 | PDOC.EVN ---
Event Note - Event Note Event Note: Good diuresis after lasix challenge ECHO results pending
--- NOTE | 2019-07-11 15:12 | PRG ---
DATE OF SERVICE: 07/11/2019 TIME OF EVALUATION: 1458 hours. LOCATION: [address] [place] [address]. In brief, I was told that the patient had her echocardiogram completed. I have checked the report, but there is no formal report read as of yet. The cable respooler butter production supervisor is Dr. Elis Hardy. We will call her here shortly to see if she has any update on this preliminary read. Clinically, the patient is walking around without shortness of breath and seems to be fine. So, we will await the formal read. Job ID: [id number]
--- NOTE | 2019-07-11 16:55 | PDOC.EVN ---
Event Note - Event Note Event Note: Dr Bach called with her report. EF is normal, normal wall motion, no abnormality except mild pericardial effusion. Dr bach recommends continued lasix...will give at 1900...having good diuresis
[2019-07-11] MEDS: Furosemide 40 MG/4 ML VIAL SLOW IVP SCH (18:45)
[2019-07-12] MEDS: Ibuprofen 800 MG TAB PO SCH (05:20)
--- NOTE | 2019-07-12 06:29 | PDOC.PP ---
Post Progress Note Post Day #: 5 Subjective: feels better but still with LE edema but improved. She states would like to stay today if possible PO intake tolerated: yes Flatus: yes Ambulation: yes Vital Signs (12 hours) Temp Pulse Resp BP BP Pulse Ox 07/12/19 03:00 99.1 F 114 H 20 129/71 99 07/12/19 01:05 99.1 F 117 H 20 125/85 07/11/19 23:55 99.4 F 133 H 20 137/95 H 07/11/19 19:55 99.1 F 124 H 20 128/79 100 Weight Weight 155 lb - Physical Examination General: NAD Cardiovascular: no m/r/g Abdominal: + bowel sounds, lochia, no distention, appropriately TTP Extremities: negative homans (B) Neurological: no gross focal deficits Psychiatric: A&Ox3, normal affect Result Diagrams: 07/11/19 05:44 07/11/19 08:35 Additional Labs: Post Labs Blood Type AB POSITIVE 07/06/19 06:18 Hep Bs Antigen Non-Reactive S/CO (NonReactive) 07/02/19 19:52 (1) (spontaneous vaginal delivery) Code(s): O80 - ENCOUNTER FOR FULL-TERM UNCOMPLICATED DELIVERY Status: Acute - Assessment/Plan PPD 5..s/p VE with LE edema...echo was negative. We will give another lasix po dose this AM (40mg) and reeval for possible DC to home this PM. If no DC this PM then we will plan for AM DC Saturday. Pulse noted to be high after ambulation, but TSH was normal as was EKG. Hct stable at 23.
[2019-07-12] MEDS ORDERED: Furosemide 40 MG TAB PO SCH (06:30)
[2019-07-12] MEDS: Ferrous Sulfate 325 MG TAB PO SCH ×2 (09:50→18:33)
[2019-07-12] MEDS: Docusate Calcium (SURFAK) 240 MG CAP PO SCH ×2 (09:50→23:11)
[2019-07-12] MEDS: Prenatal Vitamin 1 TAB PO SCH (09:51)
[2019-07-12] MEDS: Famotidine 20 MG TAB PO SCH ×3 (09:51→23:55)
[2019-07-12] MEDS: NIFEdipine XL 30 MG TAB PO SCH (09:51)
[2019-07-12 10:26] LABS: #Eosinphils 0.1 thou/uL (0.0-0.7); #Lymphocytes 1.8 thou/uL (1.20-3.40); #Monocytes 0.6 thou/uL (0.11-0.59); #Neutrophils 9.9 thou/uL (1.40-6.50); %Basophils 0.4 % (0.0-1.0); %Eosinophils 0.8 % (0.0-10.0); %Lymphocytes 14.1 % (21.0-51.0); %Monocytes 5.1 % (0.0-10.0); %Neutrophils 79.6 % (42.0-75.0); Hemoglobin 6.8 g/dL (12.0-16.0); Mean Corpuscular HGB CONC 31.3 g/dL (32.0-36.0); Mean Corpuscular Hemoglobin 26.4 pg (27.0-31.0); Mean Corpuscular Volume 84.3 fL (78.0-98.0); Platelet Count 282 thou/uL (130-400); Red Blood Cell (RBC) Count 2.56 mill/uL (4.20-5.40); White Blood Cell (WBC) Count 12.5 thou/uL (4.8-10.8)
--- NOTE | 2019-07-12 13:02 | PDOC.EVN ---
Event Note - Event Note Event Note: 07/12/2019 at 12:50 Received call from nursing regarding patient passing clots. Went to evaluate patient. She states that each time she has gone to the restroom, she has been bleeding. Last night she passed 3-4 half dollar sized clots. Today, she continues to pass clots. These clots were visualized in a bin in the restroom. Patient's Hg has gradually dropped over the last several days. Today, her H/H was 6.8/21.6. Starting H/H was 11.7/34.9. Immediate post-delivery QBL 143 mL. Total QBL 468 mL as reported by PP nurse. Will obtain TVUS to assess for retained products of conception. Other labs pending to assess other etiologies of bleeding. Chantel Maradiaga, DO PGY-3
[2019-07-12 13:40] LABS: Band 21 % (5-11); Bite Cells SLIGHT = 2-5 cells (100X) (0-1/hpf); Helmet Cells SLIGHT = 2-5 cells (100X) (0-1/hpf); Hemoglobin 6.9 g/dL (12.0-16.0); Lymphocytes 12 % (21-51); MDiff Complete? YES; Mean Corpuscular HGB CONC 32.5 g/dL (32.0-36.0); Mean Corpuscular Hemoglobin 27.5 pg (27.0-31.0); Mean Corpuscular Volume 84.8 fL (78.0-98.0); Mean Platelet Volume 7.5 fL (7.4-10.4); Metamyelocyte 1 % (0-0); Monocytes 3 % (0-10); Neutrophil 56 % (42-75); Platelet Count 275 thou/uL (130-400); Platelet Morphology Comment Appears Adequate; Polychromasia SLIGHT = 2-3 cells (100X) (0-2/hpf); RBC Distribution Width 16.1 % (11.5-14.5); Reactive Lymphocytes 7 % (0-10); Red Blood Cell (RBC) Count 2.49 mill/uL (4.20-5.40); Schistocytes SLIGHT = 2-5 cells (100X) (0-1/hpf); Tear Drops SLIGHT = 2-5 cells (100X) (0-1/hpf); White Blood Cell (WBC) Count 12.3 thou/uL (4.8-10.8)
--- NOTE | 2019-07-12 15:07 | ULT ---
TRANSABDOMINAL PELVIC ULTRASOUND WITH DOPPLER: Date: 07/12/19 HISTORY: heavy vaginal bleed. Five days . FINDINGS: The uterus measures 10.3 x 2.2 x 6.8 cm with echogenic material in the lower uterine segment. Increas ed flow is seen in this region. The left ovary is not visualized. The right ovary measures 3.4 x 4.8 x 2.7 cm and demonstrates flow. There is a 2.0 cm cyst in the right ovary. There is free fluid in the adnexal regions. IMPRESSION: Findings consistent with retained products of conception in the lower uterine segment. POS: [facility]
[2019-07-12] MEDS ORDERED: Lidocaine 1% PF 5 ML VIAL ONE (15:17)
[2019-07-12] MEDS ORDERED: Ondansetron PF 4 MG/2 ML Vial ONE (15:17)
[2019-07-12] MEDS ORDERED: PHENYLEPHRINE-NS 100 MCG/ML 10 ML SYRINGE ONE (15:17)
[2019-07-12] MEDS ORDERED: PROPOFOL 200 MG/20 ML VIAL ONE (15:17)
[2019-07-12] MEDS ORDERED: Dexamethasone 20 MG/5 ML VIAL ONE (15:17)
--- NOTE | 2019-07-12 15:49 | PDOC.EVN ---
Event Note - Event Note Event Note: 07/12/2019 at 15:48 TVUS reviewed and consistent with retained products of conception in lower uterine segment. Called and spoke to primary OB, Dr. Siegel. Will give TXA and plan for D&C this afternoon. Coagulation studies repeated. Plan discussed with patient. Chantel Maradiaga, DO PGY-3
[2019-07-12 16:12] LABS: INR-International Normal Ratio 0.9; Prothrombin Time 11.9 SEC (12.0-14.7)
[2019-07-12 16:13] LABS: PTT 28.9 SEC (22.9-36.1)
[2019-07-12] MEDS ORDERED: Fentanyl 100 MCG/2 ML VIAL ONE ×2 (17:32→19:29)
[2019-07-12] MEDS: Furosemide 40 MG/4 ML VIAL SLOW IVP SCH ×2 (18:33→21:27)
[2019-07-12] MEDS ORDERED: Tranexamic Acid 1,000 MG/10 ML VIAL ONE (18:43)
[2019-07-12] MEDS ORDERED: Phenylephrine HCL 10 MG/ML VIAL ONE (18:55)
[2019-07-12] MEDS ORDERED: Misoprostol 200 MCG TAB ONE (19:07)
[2019-07-12] MEDS ORDERED: Oxytocin 10 UNITS/ML VIAL ONE (19:17)
[2019-07-12] MEDS ORDERED: cefOXitin 2 GM VIAL ONE (19:21)
[2019-07-12] MEDS ORDERED: Meperidine HCl/PF 25 MG/ML VIAL SLOW IVP PRN (19:52)
[2019-07-12] MEDS ORDERED: Promethazine HCl 25 MG/ML VIAL SLOW IVP PRN (19:52)
[2019-07-12] MEDS ORDERED: Ondansetron HCl/PF 4 MG/2 ML Vial IVP PRN (19:52)
[2019-07-12] MEDS ORDERED: HYDROmorphone 2 MG/ML VIAL SLOW IVP PRN (19:52)
[2019-07-12] MEDS ORDERED: PACU-Morphine 4MG/ML VIAL SLOW IVP PRN (19:52)
[2019-07-12] MEDS ORDERED: Morphine Sulfate 2 MG/ML SYRINGE SLOW IVP PRN (19:52)
[2019-07-12] MEDS ORDERED: Promethazine HCl 25 MG/ML VIAL IM PRN (19:52)
[2019-07-12] MEDS ORDERED: Meperidine HCl/PF 25 MG/ML VIAL ONE (20:04)
[2019-07-12] MEDS ORDERED: Azithromycin 250 MG TAB PO SCH (23:45)
[2019-07-12] MEDS ORDERED: Acetaminophen 500 MG TAB PO PRN (23:49)
--- NOTE | 2019-07-13 03:27 | OP ---
DATE OF PROCEDURE: 07/12/2019 PREOPERATIVE DIAGNOSES: 1. Suspected retained products of conception. 2. day 5, status post vaginal delivery. 3. Symptomatic anemia. POSTOPERATIVE DIAGNOSES: 1. Retained products of conception. 2. day 5, status post vaginal delivery. 3. Symptomatic anemia. 4. Breakdown of second-degree laceration. PROCEDURES PERFORMED: 1. Dilation and curettage. 2. Second-degree laceration repair. ASSISTANTS: Lisbeth Diehl and Chantel Maradiaga. ANESTHESIA: General endotracheal. COMPLICATIONS: None. ESTIMATED BLOOD LOSS: 800 mL. FLUIDS: 1. Per Anesthesia. 2. Transfusion of 2 units of packed red blood cells. INDICATIONS FOR PROCEDURE: The patient was day 5 and had a gradual drop in her hemoglobin. Starting last night, she started having heavier vaginal bleeding and this morning started passing clots and ultrasound was performed and showed suspected retained products of conception. The patient was counseled, and the decision was made to proceed with a D and C. DESCRIPTION OF PROCEDURE: The patient was taken to the operating room, where general anesthesia was obtained without difficulty. She was prepared and draped in the normal sterile fashion in the dorsal lithotomy position with high leg holders. Her bladder was drained with in and out catheterization, approximately 300 mL of urine. A speculum was placed in the vagina, and the cervix was grasped with a single-tooth tenaculum. The uterus was sounded to 9 cm. A sharp curette was gently advanced under ultrasound guidance and a large amount of placental tissue was removed from the uterus. A suction curettage was performed, which removed another significant amount of placental tissue. However, at that time, significant bleeding was noted to be coming from the cervix, and the right side of the cervix at 9 o'clock was clamped with a ring forceps with hemostasis noted. At that time, Dr. Diehl was called in to assist in case the bleeding recurred. At that time, 1000 mcg of Cytotec was placed rectally. Pitocin was started, and another dose of tranexamic acid was given as well as a dose of Hemabate. At that time, the uterus was noted to be more firm. Ultrasound evaluation revealed another area of heterogeneity at the fundus, which was also felt with sharp curettage. Again, a sharp curettage was performed until a gritty texture was noted. A suction curette was advanced to the fundus, and the remaining tissue was removed. Hemostasis was noted after removal of the ring forceps. Attention was turned to the perineum, where her perineal laceration appeared to be broken down with a large amount of clot and unhealthy-appearing tissue. This tissue was removed, and the perineum was reapproximated in a standard fashion as a second-degree laceration. Again, good hemostasis was noted. The patient tolerated the procedure well. Sponge, lap, and needle counts were correct x2. The patient was taken to recovery room in stable condition. Job ID: [id number] [facility]
[2019-07-13 07:07] LABS: #Lymphocytes 2.1 thou/uL (1.20-3.40); #Monocytes 0.9 thou/uL (0.11-0.59); %Basophils 0.1 % (0.0-1.0); %Eosinophils 0.3 % (0.0-10.0); %Lymphocytes 12.9 % (21.0-51.0); %Monocytes 5.8 % (0.0-10.0); %Neutrophils 80.9 % (42.0-75.0); Hemoglobin 7.5 g/dL (12.0-16.0); Mean Corpuscular HGB CONC 33.8 g/dL (32.0-36.0); Mean Corpuscular Hemoglobin 28.6 pg (27.0-31.0); Mean Corpuscular Volume 84.6 fL (78.0-98.0); Mean Platelet Volume 7.2 fL (7.4-10.4); Platelet Count 248 thou/uL (130-400); RBC Distribution Width 16.5 % (11.5-14.5); Red Blood Cell (RBC) Count 2.63 mill/uL (4.20-5.40); White Blood Cell (WBC) Count 16.1 thou/uL (4.8-10.8)
[2019-07-13 07:21] LABS: Band 15 % (5-11); Lymphocytes 13 % (21-51); MDiff Complete? YES; Monocytes 6 % (0-10); Neutrophil 66 % (42-75); Platelet Morphology Comment Appears Adequate; Polychromasia MODERATE = 3-4 cells (100X) (0-2/hpf)
--- NOTE | 2019-07-13 07:40 | PDOC.EVN ---
Event Note - Event Note Event Note: entered in error
--- NOTE | 2019-07-13 07:42 | PDOC.PP ---
Post Progress Note Post Day #: 6 Subjective: S: Patient feeling much better this morning. Has no complaints. PO intake tolerated: yes Ambulation: yes Vital Signs (12 hours) Temp Pulse Resp BP BP Pulse Ox 07/13/19 05:45 98.9 F 114 H 16 117/74 07/13/19 00:40 99.7 F H 114 H 16 119/77 07/13/19 00:30 120 H 135/85 07/12/19 23:30 101.2 F H 125 H 20 130/84 07/12/19 22:30 126 H 131/79 07/12/19 22:00 97.9 F 113 H 130/76 07/12/19 21:30 125 H 20 139/88 95 07/12/19 20:55 98.4 F 125 H 20 131/92 H 94 L Weight Weight 155 lb - Physical Examination General: NAD Deviation from normal: tachycardic Respiratory: non-labored breathing Abdominal: lochia (normal), no distention, appropriately TTP Fundus firm & at: below umbilicus Neurological: no gross focal deficits Psychiatric: A&Ox3, normal affect Result Diagrams: 07/13/19 06:05 07/11/19 08:35 Additional Labs: Post Labs Blood Type AB POSITIVE 07/12/19 16:25 Hep Bs Antigen Non-Reactive S/CO (NonReactive) 07/02/19 19:52 (1) (spontaneous vaginal delivery) Code(s): O80 - ENCOUNTER FOR FULL-TERM UNCOMPLICATED DELIVERY Status: Acute (2) Severe pre-eclampsia, Code(s): O14.15 - SEVERE PRE-ECLAMPSIA, COMPLICATING THE PUERPERIUM Status: Acute (3) Retained products of conception Code(s): XVG6577 - Status: Acute (4) S/P dilation and curettage Status: Acute - Assessment/Plan Discussed procedure with patient. She seems to be feeling a lot better this morning but spiked temperature overnight. Doxycycline was started at that time. Patient remains tachycardic. Will recheck cbc in 4 hours. Continue current management.
[2019-07-13] MEDS ORDERED: Gentamicin 20 MG/2 ML PF (Neonates) IVPB SCH (08:45)
[2019-07-13] MEDS: Ferrous Sulfate 325 MG TAB PO SCH ×2 (09:28→17:06)
[2019-07-13] MEDS: Docusate Calcium (SURFAK) 240 MG CAP PO SCH ×2 (09:29→21:56)
[2019-07-13] MEDS: Prenatal Vitamin 1 TAB PO SCH (09:29)
[2019-07-13] MEDS: Famotidine 20 MG TAB PO SCH ×2 (09:30→21:56)
[2019-07-13] MEDS: NIFEdipine XL 30 MG TAB PO SCH (09:30)
[2019-07-13] MEDS: Tranexamic Acid 650 MG TAB PO SCH ×3 (09:31→21:56)
[2019-07-13] MEDS: Clindamycin/D5W 900 MG in Premix Bag 1 BAG IVPB SCH ×2 (09:32→17:07)
[2019-07-13 10:36] LABS: #Lymphocytes 1.9 thou/uL (1.20-3.40); #Monocytes 0.9 thou/uL (0.11-0.59); %Basophils 0.1 % (0.0-1.0); %Eosinophils 0.4 % (0.0-10.0); %Lymphocytes 13.8 % (21.0-51.0); %Monocytes 6.2 % (0.0-10.0); %Neutrophils 79.6 % (42.0-75.0); Hemoglobin 7.2 g/dL (12.0-16.0); Mean Corpuscular HGB CONC 32.9 g/dL (32.0-36.0); Mean Corpuscular Hemoglobin 27.7 pg (27.0-31.0); Mean Corpuscular Volume 84.2 fL (78.0-98.0); Mean Platelet Volume 7.4 fL (7.4-10.4); Platelet Count 254 thou/uL (130-400); RBC Distribution Width 16.7 % (11.5-14.5); Red Blood Cell (RBC) Count 2.62 mill/uL (4.20-5.40); White Blood Cell (WBC) Count 13.8 thou/uL (4.8-10.8)
[2019-07-13] MEDS: GENTAMICIN SULFATE IVPB SCH (11:10)
[2019-07-13] MEDS: SODIUM CHLORIDE 0.9% IVPB SCH (11:10)
[2019-07-13 12:53] VITALS: BMI 31.3
[2019-07-13] MEDS: Furosemide 40 MG/4 ML VIAL SLOW IVP SCH (18:25)
[2019-07-14] MEDS: Clindamycin/D5W 900 MG in Premix Bag 1 BAG IVPB SCH ×3 (01:01→17:51)
[2019-07-14 08:57] LABS: #Basophils 0.1 thou/uL (0.0-0.2); #Eosinphils 0.1 thou/uL (0.0-0.7); #Lymphocytes 2.4 thou/uL (1.20-3.40); #Monocytes 0.7 thou/uL (0.11-0.59); #Neutrophils 5.7 thou/uL (1.40-6.50); %Basophils 0.7 % (0.0-1.0); %Eosinophils 0.6 % (0.0-10.0); %Lymphocytes 26.9 % (21.0-51.0); %Monocytes 7.3 % (0.0-10.0); %Neutrophils 64.4 % (42.0-75.0); Hemoglobin 6.9 g/dL (12.0-16.0); Mean Corpuscular HGB CONC 32.3 g/dL (32.0-36.0); Mean Corpuscular Hemoglobin 27.6 pg (27.0-31.0); Mean Corpuscular Volume 85.6 fL (78.0-98.0); Mean Platelet Volume 6.7 fL (7.4-10.4); Platelet Count 266 thou/uL (130-400); RBC Distribution Width 16.8 % (11.5-14.5); Red Blood Cell (RBC) Count 2.49 mill/uL (4.20-5.40); White Blood Cell (WBC) Count 8.9 thou/uL (4.8-10.8)
[2019-07-14 09:07] LABS: Anion Gap 11 mmol/L (10-20); BUN (Urea Nitrogen) 6 mg/dL (7.0-18.7); Calc. Creatinine Clearance 148 mL/min (70-130); Calcium 8.2 mg/dL (7.8-10.44); Carbon Dioxide 25 mmol/L (22-29); Chloride 109 mmol/L (98-107); Estimated GFR-MDRD Greater than 90; Glucose 99 mg/dL (70-105); Sodium 141 mmol/L (136-145)
--- NOTE | 2019-07-14 09:10 | PRG ---
DATE OF SERVICE: 07/14/2019 SUBJECTIVE: The patient is a 6-7 days now with severe preeclampsia complicated with fluid retention as well as retained products of conception and endometritis. She was started by Dr. Menendez on clindamycin and yesterday. She has been getting Lasix once daily. The patient states she feels much better this morning. She is ambulating. OBJECTIVE: VITAL SIGNS: Reveal an 18 pounds weight loss from 155-137, temperature 98.2, pulse 104, blood pressure 119/74. Pulse has decreased from the 120s, T-max yesterday was 99.2 after a 100.3 at 0800 hours. LUNGS: Clear to auscultation bilaterally. HEART: Regular rhythm. ABDOMEN: Soft. It is much decreased in its distention. No fluid wave, firm fundus, minimal if any lochia. EXTREMITIES: No clubbing, cyanosis, or edema. IMPRESSION: Endometritis status post retained products of conception with severe preeclampsia, now approximately 7 days with clinically improving at this time. PLAN: We will recheck CBC and base metabolic panel. We will replenish potassium if necessary. The patient clinically does not need another blood transfusion, but we will check CBC just to assure no further decrease in her hematocrit. Anticipate continuing antibiotics tomorrow and possible late p.m. 07/15 versus 07/16 discharge. Job ID: [id number]
[2019-07-14] MEDS: Famotidine 20 MG TAB PO SCH ×2 (10:23→20:04)
[2019-07-14] MEDS: Ferrous Sulfate 325 MG TAB PO SCH ×2 (10:24→18:01)
[2019-07-14] MEDS: Prenatal Vitamin 1 TAB PO SCH (10:25)
[2019-07-14] MEDS: Docusate Calcium (SURFAK) 240 MG CAP PO SCH ×2 (10:26→20:04)
[2019-07-14] MEDS: Sodium Chloride 0.9% 10 ML ONE ×2 (10:27→10:28)
[2019-07-14] MEDS: Tranexamic Acid 650 MG TAB PO SCH (10:27)
--- NOTE | 2019-07-14 10:33 | EKG ---
Test Reason : Blood Pressure : / mmHG Vent. Rate : 101 BPM Atrial Rate : 101 BPM P-R Int : 142 ms QRS Dur : 066 ms QT Int : 338 ms P-R-T Axes : 061 049 046 degrees QTc Int : 438 ms Poor data quality, interpretation may be adversely affected Sinus tachycardia Otherwise normal ECG No previous ECGs available Confirmed by DANIEL HILLMAN, VERNA ([id number] on 07/14/2019 10:32:54 AM Referred By: SHASHI Confirmed By:VERNA SANCHEZ MD
[2019-07-14] MEDS: GENTAMICIN SULFATE IVPB SCH (10:50)
[2019-07-14] MEDS: SODIUM CHLORIDE 0.9% IVPB SCH (10:50)
[2019-07-14] MEDS: NIFEdipine XL 30 MG TAB PO SCH (11:17)
[2019-07-14 12:45] LABS: Actual Bicarbonate (HCO3a) 24.5 mEq/L (22-28); Analyzer IN Cardio OR; Base Excess (BEa) 0.6 mEq/L (-2.0 to +3.0); CO2 Tension 36.4 mmHg (35.0-45.0); Calcium, Ionized 1.07 mmol/L (1.12-1.30); Carboxyhemoglobin (COHb) 0.5 gm% (0.0-3.0); Hemoglobin (Hb) 8.7 g/dL (12.0-16.0); Potassium - ABG Lab 3.76 mmol/L (3.70-5.30); Puncture Site ALINE; pH, Arterial 7.45 (7.35-7.45)
[2019-07-14] MEDS ORDERED: Iron Sucrose Complex 500 MG in Sodium Chloride 0.9% 250 ML 250 ML IVPB SCH (16:45)
[2019-07-14] MEDS: Furosemide 40 MG/4 ML VIAL SLOW IVP SCH (20:04)
[2019-07-15] MEDS: Clindamycin/D5W 900 MG in Premix Bag 1 BAG IVPB SCH ×2 (01:13→09:05)
[2019-07-15] MEDS: Docusate Calcium (SURFAK) 240 MG CAP PO SCH (07:35)
[2019-07-15] MEDS: Ferrous Sulfate 325 MG TAB PO SCH (08:57)
[2019-07-15] MEDS: Famotidine 20 MG TAB PO SCH (08:57)
[2019-07-15] MEDS: Prenatal Vitamin 1 TAB PO SCH (08:57)
[2019-07-15] MEDS: GENTAMICIN SULFATE IVPB SCH (10:39)
[2019-07-15] MEDS: SODIUM CHLORIDE 0.9% IVPB SCH (10:39)
[2019-07-15 12:17] VITALS: BP 114/73; TEMP 98.8
--- NOTE | 2019-07-15 14:24 | DIS ---
DATE OF ADMISSION: 07/02/2019 DATE OF DISCHARGE: 07/15/2019 SUMMARY OF HOSPITAL COURSE: The patient was admitted and had a long course in the hospital. She was admitted with severe preeclampsia at 34 weeks' gestation. She received magnesium, antihypertensives, and corticosteroids upon admission. Blood pressure stabilized for approximately 6 days after admission until they re-elevated to severe level. She underwent a Pitocin induction of labor on the and delivery was approximately 1730 on 07/07. did well and went to the NICU. Placenta weighed 282 g, was noted to be intact with the circummarginate/circumvallate cord insertion and placental infarcts noted. The patient's postoperative course was complicated by significant edema including abdominal fluid wave and mild pulmonary edema. Cardiology workup was negative. She was noted to have bleeding consistent with retained products of conception on the and underwent a D and C by Dr. Gladys Rucker on the . She had a febrile morbidity concurrent with that and was placed on gentamycin and clindamycin. She defervesced and remained afebrile for greater than 48 hours prior to discharge. Hematocrit had dropped down to approximately 21% to 22%. She received 2 units of PRBCs and had a stable hematocrit. She received 500 of IV iron prior to discharge. Blood pressures had stabilized and were within normal limits, off antihypertensives upon discharge. PHYSICAL EXAMINATION: VITAL SIGNS: Discharge temperature is 98.8, pulse 100, respirations 20, blood pressure 114/73. HEENT: Within normal limits. LUNGS: Clear to auscultation bilaterally. HEART: Regular rhythm. ABDOMEN: Soft and nontender with a firm fundus. Normal lochia. EXTREMITIES: No clubbing, cyanosis, or edema. IMPRESSION: Severe preeclampsia, now delivered with retained products of conception, and anemia secondary to acute blood loss in the peripartum period, requiring transfusion. PLAN: Discharge home. Continue vitamins. Interval followup for visit at [facility] with Dr. Siegel. Job ID: [id number]
== END 2019-07-15 16:25 | disposition home or self-care (01) | DRG 797 ==
LOC: L&D/OP 17:36 → L&D 22:03 → 3SW 07-08 21:02
PROVIDERS: ADMIT Obstetrics & Gynecology; ATTEND Obstetrics & Gynecology
PROC: 10D07Z6 Extraction of Products of Conception, Vacuum, Via Natural or Artificial Opening (ICD-10-PCS; principal; 2019-07-07)
PROC: 0KQM0ZZ Repair Perineum Muscle, Open Approach (ICD-10-PCS; 2019-07-07)
PROC: 10907ZC Drainage of Amniotic Fluid, Therapeutic from Products of Conception, Via Natural or Artificial Opening (ICD-10-PCS; 2019-07-07)
PROC: 10H07YZ Insertion of Other Device into Products of Conception, Via Natural or Artificial Opening (ICD-10-PCS; 2019-07-07)
PROC: 4A1HX4Z Monitoring of Products of Conception, Cardiac Electrical Activity, External Approach (ICD-10-PCS; 2019-07-07)
PROC: 3E033VJ Introduction of Other Hormone into Peripheral Vein, Percutaneous Approach (ICD-10-PCS; 2019-07-07)
PROC: 10D17ZZ Extraction of Products of Conception, Retained, Via Natural or Artificial Opening (ICD-10-PCS; 2019-07-12)
PROC: 30233N1 Transfusion of Nonautologous Red Blood Cells into Peripheral Vein, Percutaneous Approach (ICD-10-PCS; 2019-07-12)
DX: O14.14 Severe pre-eclampsia complicating childbirth (principal); D62 Acute posthemorrhagic anemia; Z37.0 Single live birth; Z3A.34 34 weeks gestation of pregnancy; Z28.21 Immunization not carried out because of patient refusal; O76 Abnormality in fetal heart rate and rhythm complicating labor and delivery; O72.2 Delayed and secondary postpartum hemorrhage; O99.43 Diseases of the circulatory system complicating the puerperium; R00.0 Tachycardia, unspecified; O86.12 Endometritis following delivery; O90.81 Anemia of the puerperium; O70.1 Second degree perineal laceration during delivery
CPT/HCPCS: 36415; 36430; 51702; 71045; 76819; 76856; 80048; 80053; 81003; 81015; 82570; 82805; 83010; 83605; 83615; 83735; 83880; 84156; 84443; 84450; 85025; 85027; 85060; 85610; 85730; 86780; 86850; 86900; 86901; 87340; 88305; 88307; 93005; 93010; 93306; 99285; J0360; J0694; J0702; J1100; J1580; J1756; J1940; J2001; J2175; J2370; J2405; J2540; J2590; J2704; J3010; J3475; J3490; J7050; P9016